=== PATIENT | male | born 1985 | race Caucasian/White ===

== ENCOUNTER 2018-12-16 09:04 | Outpatient (CLI) | payer OTHER | END 2018-12-16 09:05 | disposition home or self-care (01) | LOC: SC 09:04 | PROVIDERS: ATTEND Internal Medicine Pulmonary Disease | DX: R06.83 Snoring (principal); G47.8 Other sleep disorders; G47.10 Hypersomnia, unspecified | CPT/HCPCS: 99203; 99212 ==

== ENCOUNTER 2019-01-06 09:41 | Outpatient (CLI) | payer OTHER | END 2019-01-06 09:42 | disposition home or self-care (01) | LOC: SC 09:41 | PROVIDERS: ATTEND Internal Medicine Pulmonary Disease | DX: R06.83 Snoring (principal) | CPT/HCPCS: 99212; 99213 ==